=== PATIENT | female | born 1980 | race Caucasian/White ===

== ENCOUNTER → 2023-08-14 19:03 | Outpatient (CLI) | payer OTHER, SELFPAY ==
--- NOTE | 2023-08-14 19:07 | DI.MRI.S_ITS ---
PROCEDURE: MR SHOULDER RT WO CON INDICATIONS: Pain in right shoulder TECHNIQUE: Noncontrast oblique coronal T2 fast spin echo with fat saturation, oblique sagittal T1 spin echo and T2 fast spin echo with fat saturation, axial T1 spin echo and T2 fast spin echo with fat saturation through the shoulder. COMPARISON: None. FINDINGS: Image quality: There are motion artifacts. Rotator cuff: There is mild supraspinatus, infraspinatus and subscapularis tendinosis. No high-grade tendon tear. Sagittal images demonstrate no rotator cuff muscle atrophy. Bones and bursae: No bone marrow contusions or fractures. No acromioclavicular joint degeneration. The acromion demonstrates conventional anatomy, without an os acromiale. There is subcoracoid bursal fluid suggesting bursitis. Capsule and soft tissues: Labrum appears intact. There is mild tendinosis of the intra-articular segment of the long head of the biceps tendon which demonstrates normal location and morphology. The rotator interval appears normal, without fibrosis. The coracohumeral ligament is normal in thickness. IMPRESSION: 1. Mild rotator cuff tendinosis. No high-grade tendon tear. No rotator cuff muscle atrophy. 2. Mild tendinosis of the proximal long head of the biceps. 3. Subcoracoid bursitis. Dictated by: Lucita Griffith M.D. on 08/15/2023 at 11:11 Approved by: Lucita Griffith M.D. on 08/15/2023 at 18:00
== END ==
PROVIDERS: PCP Physician Assistant Medical; Referring Provider Nurse Practitioner Family; Visit Provider Nurse Practitioner Family
DX: M75.51 Bursitis of right shoulder (principal); M25.511 Pain in right shoulder
CPT/HCPCS: 73221